=== PATIENT | male | born 1945 | race Caucasian/White ===

== ENCOUNTER 2016-11-02 21:38 | Emergency (ER) | payer BC, OTHER ==
[~2016-11-02] VITALS: Ht 177.8 cm; Wt 69.4 kg
[2016-11-02 23:49] LABS: BASOPHIL COUNT 0.1 K/uL (0-0.1); EOSINOPHIL COUNT 0.1 K/uL (0-0.3); HEMATOCRIT 36.4 % (38.0-50.0); IMMATURE GRANULOCYTE (%) 0.3 % (0.0-0.7); INSTRUMENT ABS NEUTROPHIL CT 4.2 K/uL; LYMPHOCYTE COUNT 0.9 K/uL (1.0-2.8); MCH 29.1 PG (29.0-34.0); MCHC 31.9 G/DL (30.0-36.0); MCV 91.5 FL (86-99); MONOCYTE (%) 13.6 % (3-12); MONOCYTE COUNT 0.8 K/uL (0-0.8); NEUTROPHIL (%) 69.2 % (45-76); NEUTROPHIL COUNT 4.2 K/uL (1.8-6.4); PLATELET COUNT 165 K/uL (156-360); RBC DIS.WIDTH-CV 14.1 % (11.8-14.6); RBC DIS.WIDTH-SD 47.3 % (39-53); RED BLOOD COUNT 3.98 M/uL (4.00-5.50); WHITE BLOOD COUNT 6.1 K/uL (4.1-10.2)
[2016-11-02 23:52] LABS: ADD MIUA? YES; BILIRUBIN NEGATIVE; BLOOD SMALL; COLOR YELLOW ((YELLOW)); GLUCOSE (STRIP) NEGATIVE; KETONES 5; LEUKOCYTES NEGATIVE; NITRITE NEGATIVE; PROTEIN (STRIP) NEGATIVE; SPECIFIC GRAVITY 1.024 (1.000-1.030); UROBILINOGEN 0.2 MG/DL (0.2-1.0)
[2016-11-03] LABS: CHLORIDE 105 mEq/L (99-109); POTASSIUM 4.5 mEq/L (3.7-5.4); SODIUM 143 mEq/L (136-147)
[2016-11-03 00:03] LABS: GLUCOSE 94 mg/dL (70-99)
[2016-11-03 00:04] LABS: ANION GAP 10 MEQ/L (2-14); TOTAL BILIRUBIN 0.3 mg/dL (0.0-1.0)
[2016-11-03 00:06] LABS: ALKALINE PHOSPHATASE 82 IU/L (3-129); GFR ESTIMATE (CALCULATED) > 59 mL/min/
[2016-11-03 00:07] LABS: UREA NITROGEN (BUN) 17 mg/dL (9-23)
[2016-11-03 00:10] LABS: LIPASE 14 U/L (1.0-51.0); TROP-I INTERPRETATION NEGATIVE; TROPONIN-I < 0.01 ng/mL (0.0-0.30)
[2016-11-03 00:20] LABS: BACTERIA NONE SEEN /HPF; EPITHELIAL CELLS NONE SEEN /HPF; HYALINE CASTS 0-5 /LPF; MUCUS TRACE /LPF; RED BLOOD CELLS 15-20 /HPF (0-5); UCUL ADDED? NO; WHITE BLOOD CELLS 0-5 /HPF (0-5)
[2016-11-03 00:33] LABS: INFLUENZA A VIRAL ANTIGEN NEGATIVE; INFLUENZA B VIRAL ANTIGEN NEGATIVE
[2016-11-03 03:00] VITALS: BP 117/74
[2016-11-03] MEDS ORDERED: DEXILANT30 MG PO (12:16)
[2016-11-03] MEDS ORDERED: ASPIR 8181 M1 PO (12:16)
[2016-11-03] MEDS ORDERED: SENEXON-S TABL1 EACH PO (12:17)
[2016-11-03] MEDS ORDERED: IRON325 MG PO (12:17)
[2016-11-03] MEDS ORDERED: FLOVENT DISKUS1 DIS2 IH (12:18)
[2016-11-03] MEDS ORDERED: SEROQUEL100 MG PO (12:18)
[2016-11-03] MEDS ORDERED: DEPAKOTE500 MG PO (12:19)
[2016-11-03] MEDS ORDERED: REMERON45 MG PO (12:19)
[2016-11-03] MEDS ORDERED: LORAZEPAM0.5 MG PO (12:21)
[2016-11-03] MEDS ORDERED: TYLENOL REGULA325 MG PO (12:21)
== END 2016-11-03 03:10 | disposition home or self-care (01) ==
LOC: EME → EDBD 21:38 → EME 21:38
PROVIDERS: Emergency Medicine
DX: R41.82 Altered mental status, unspecified (principal); Z87.820 Personal history of traumatic brain injury; R50.9 Fever, unspecified; R45.1 Restlessness and agitation
CPT/HCPCS: 70450; 71010; 80053; 81003; 83605; 83690; 84484; 85025; 87040; 87502; 99281; 99283; J1630; J2060; J7030

== ENCOUNTER 2016-11-03 09:18 | Emergency (ER) | payer BC, OTHER ==
[~2016-11-03] VITALS: Ht 182.9 cm; Wt 74.7 kg
[2016-11-03 11:56] VITALS: BP 115/73
[2016-11-03] MEDS ORDERED: DEXILANT30 MG PO (12:16)
[2016-11-03] MEDS ORDERED: ASPIR 8181 M1 PO (12:16)
[2016-11-03] MEDS ORDERED: IRON325 MG PO (12:17)
[2016-11-03] MEDS ORDERED: SENEXON-S TABL1 EACH PO (12:17)
[2016-11-03] MEDS ORDERED: FLOVENT DISKUS1 DIS2 IH (12:18)
[2016-11-03] MEDS ORDERED: SEROQUEL100 MG PO (12:18)
[2016-11-03] MEDS ORDERED: DEPAKOTE500 MG PO (12:19)
[2016-11-03] MEDS ORDERED: REMERON45 MG PO (12:19)
[2016-11-03] MEDS ORDERED: TYLENOL REGULA325 MG PO (12:21)
[2016-11-03] MEDS ORDERED: LORAZEPAM0.5 MG PO (12:21)
== END 2016-11-03 13:01 | disposition home or self-care (01) ==
LOC: EME → EDBD 09:18 → EME 13:01
DX: S51.812A Laceration without foreign body of left forearm, initial encounter (principal); S09.90XA Unspecified injury of head, initial encounter; F03.90 Unspecified dementia, unspecified severity, without behavioral disturbance, psychotic disturbance, mood disturbance, and anxiety; W18.30XA Fall on same level, unspecified, initial encounter; Y92.199 Unspecified place in other specified residential institution as the place of occurrence of the external cause
CPT/HCPCS: 70450; 99281; 99285